=== PATIENT | female | born 1955 | race Caucasian/White ===

== ENCOUNTER 2016-12-23 07:23 | Day surgery (SDC) | payer BC ==
--- NOTE | ~2016-12-23 | EGD ---
EGD REPORT [facility] [address] [place] [address] NAME: LEILANI MICHELE : [birth year] STATUS : REG [facility] PAT#: [id number] AGE: 61 ADM/REG DATE : 12/23/16 MR#: [id number] REPORT SERV DATE: 12/23/16 DICTATED BY: SIM MERIDA DATE: 12/23/16 REPORT STATUS : Draft TRANSCRIBED BY: [employer] [facility] DATE: 12/23/16 Endoscopy Center Patient Name: Leilani Michele Date of : 1955 Attending MD: SIM MREIDA MD Procedure Date No Time: 12/23/2016 Procedure: Colonoscopy Indications: FH of Colon Cancer - 1st degree relative, FH of Colon Cancer -distant relative, FH of Colonic Polyps - 1st degree relative Referring MD: SONIA SHIRLEY Medicines: as per anesthesia Complications: No immediate complications. Procedure: Pre-Anesthesia Assessment: - ASA Grade Assessment: III - A patient with severe systemic disease. After I obtained informed consent, the scope was passed under direct vision. Throughout the procedure, the patient's blood pressure, pulse, and oxygen saturations were monitored continuously. The PCF [id number] was introduced through the anus and advanced to the cecum, identified by appendiceal orifice and ileocecal valve. The colonoscopy was somewhat difficult due to restricted mobility of the colon, significant looping and a tortuous colon. The patient tolerated the procedure. The quality of the bowel preparation was adequate to identify polyps. Findings: The perianal and digital rectal examinations were normal. Internal hemorrhoids were found during endoscopy and were mild. Impression: - Internal hemorrhoids. Recommendation: - Repeat colonoscopy in 5 years for surveillance. Procedure Code(s): --- Professional --- 20329, Colonoscopy, flexible, proximal to splenic flexure; diagnostic, with or without collection of specimen(s) by brushing or washing, with or without colon decompression (separate procedure) Diagnosis Code(s): --- Professional --- K64.8, Other hemorrhoids Z80.0, Family history of malignant neoplasm of digestive EGD REPORT [facility] [address] [place]. [address] NAME: LEILANI MICHELE : [birth year] STATUS : REG [facility] PAT#: [id number] AGE: 61 ADM/REG DATE : 12/23/16 MR#: [id number] REPORT SERV DATE: 12/23/16 DICTATED BY: SIM MERIDA. DATE: 12/23/16 REPORT STATUS : Draft TRANSCRIBED BY: [employer] DATE: 12/23/16 organs Z83.71, Family history of colonic polyps CPT copyright 2013 [employer]. All rights reserved. The codes documented in this report are preliminary and upon transmitter supervisor review may be revised to meet current compliance requirements. SIM MERIDA MD 12/23/2016 10:22 AM This report has been signed electronically. Number of Addenda: 0 Note Initiated On: 12/23/2016 9:45 AM Scope Withdrawal Time 0 hours 6 minutes 13 seconds [address] [place] [address]
--- NOTE | ~2016-12-23 | EGD ---
EGD REPORT [facility] [address] [place] [address] NAME: LEILANI MICHELE : [birth year] STATUS : REG [facility] [place] PAT#: [id number] AGE: 61 ADM/REG DATE : 12/23/16 MR#: [id number] REPORT SERV DATE: 12/23/16 DICTATED BY: SIM MERIDA DATE: 12/23/16 REPORT STATUS : Draft [facility]ANSCRIBED BY: [facility] DATE: 12/23/16 Endoscopy Center Patient Name: Leilani Michele Date of : 1955 Attending MD: SIM MERIDA MD Procedure Date No Time: 12/23/2016 Procedure: Upper GI endoscopy Indications: Heartburn, Suspected esophageal reflux Referring MD: SONIA SHIRLEY Medicines: as per anesthesia Complications: No immediate complications. Procedure: Pre-Anesthesia Assessment: - ASA Grade Assessment: III - A patient with severe systemic disease. After obtaining informed consent, the endoscope was passed under direct vision. Throughout the procedure, the patient's blood pressure, pulse, and oxygen saturations were monitored continuously. The GIF [id number] was introduced through the mouth, and advanced to the third part of duodenum. The upper GI endoscopy was accomplished without difficulty. The patient tolerated the procedure. Findings: The examined esophagus was normal. Localized mild inflammation characterized by erythema was found in the gastric antrum. Biopsies were taken with a cold forceps for histology. The cardia and gastric fundus were normal on retroflexion. The examined duodenum was normal. Impression: - Normal esophagus. - Gastritis. Biopsied. - Normal examined duodenum. Recommendation: - Await pathology results. - Follow an antireflux regimen. - Continue present medications. Procedure Code(s): --- Professional --- 45001, Esophagogastroduodenoscopy, flexible, transoral; with biopsy, single or multiple Diagnosis Code(s): --- Professional --- K29.70, Gastritis, unspecified, without bleeding R12, Heartburn EGD REPORT [facility] [address] [facility] [place] [address] NAME: LEILANI MICHELE : [birth year] STATUS : REG [facility] [place]#: [id number] AGE: 61 ADM/REG DATE : 12/23/16 MR#: [id number] REPORT SERV DATE: 12/23/16 DICTATED BY: SIM MERIDA. DATE: 12/23/16 REPORT STATUS : Draft TRANSCRIBED BY: [employer] DATE: 12/23/16 CPT copyright 2013 [employer]. All rights reserved. The codes documented in this report are preliminary and upon bee producer review may be revised to meet current compliance requirements. SIM MERIDA MD 12/23/2016 10:03 AM This report has been signed electronically. Number of Addenda: 0 Note Initiated On: 12/23/2016 9:46 AM Scope Withdrawal Time 0 hours 0 minutes 0 seconds [address] [facility] [place] [address]
[~2016-12-23 07:23] MED LIST: AREDS VITAMIN PO; ARICEPT10 PO; ASABAYER PO; EVISTA60 PO; KLONO5 PO; MIRALAX POWDER1 PKT PO; PANCREASE MT OR; PRAV10 PO; PRILO PO; TEGRETOL100 MG PO; TUMSROLL PO; VIMPAT100 MG PO; VIMPAT200 MG PO; VITAMIN D1000 UNI1 PO; ZOFRAN8 PO
== END 2016-12-23 23:59 | disposition home or self-care (01) ==
LOC: DMU 07:23
PROVIDERS: Internal Medicine Gastroenterology
PROC: 0DJD8ZZ Inspection of Lower Intestinal Tract, Via Natural or Artificial Opening Endoscopic (ICD-10-PCS; principal; 2016-12-23 09:00)
PROC: 0DB68ZX Excision of Stomach, Via Natural or Artificial Opening Endoscopic, Diagnostic (ICD-10-PCS; 2016-12-23 09:00)
DX: Z12.11 Encounter for screening for malignant neoplasm of colon (principal); K64.8 Other hemorrhoids; K29.70 Gastritis, unspecified, without bleeding; K21.9 Gastro-esophageal reflux disease without esophagitis; K44.9 Diaphragmatic hernia without obstruction or gangrene; K58.9 Irritable bowel syndrome, unspecified; K85.90 Acute pancreatitis without necrosis or infection, unspecified; N18.9 Chronic kidney disease, unspecified; E78.5 Hyperlipidemia, unspecified; E78.00 Pure hypercholesterolemia, unspecified; G50.0 Trigeminal neuralgia; M81.0 Age-related osteoporosis without current pathological fracture; Z87.442 Personal history of urinary calculi; Z80.0 Family history of malignant neoplasm of digestive organs; Z98.1 Arthrodesis status; Z88.6 Allergy status to analgesic agent; Z88.1 Allergy status to other antibiotic agents; Z90.49 Acquired absence of other specified parts of digestive tract; Z90.710 Acquired absence of both cervix and uterus; Z90.722 Acquired absence of ovaries, bilateral; Z79.82 Long term (current) use of aspirin; Z79.899 Other long term (current) drug therapy; Z98.890 Other specified postprocedural states
CPT/HCPCS: 43239; G0105; 88305